=== PATIENT | female | born 1950 | race Two or more races ===

== ENCOUNTER 2020-01-04 11:53 | Emergency (ER) | payer OTHER ==
[~2020-01-04] VITALS: Ht 160 cm; Wt 63.5 kg
[2020-01-04] MEDS ORDERED: COZAAR50 MG PO (13:04)
[2020-01-04] MEDS ORDERED: CIDAFLEX TABLE1 EACH (13:05)
[2020-01-04] MEDS ORDERED: [UNRECOGNIZED DRUG - OTHER] (13:05)
[2020-01-04] MEDS ORDERED: MULTI VITAMIN1 EACH PO (13:05)
[2020-01-04] MEDS ORDERED: CITRACAL-VIT D1 EACH (13:06)
[2020-01-04] MEDS ORDERED: OSTERA TABLET1 EACH PO (13:06)
[2020-01-04] MEDS ORDERED: GLYCOTROL CAPS1 EACH PO (13:06)
[2020-01-04] MEDS ORDERED: MAGNESIUM400 M1 (13:07)
[2020-01-04] MEDS ORDERED: BIOTIN5000 MCG (13:07)
[2020-01-04] MEDS ORDERED: PROBIOTIC1 EAC2 PO (13:08)
[2020-01-04] MEDS ORDERED: NORVASC2.5 MG PO (13:08)
== END 2020-01-04 14:50 | disposition home or self-care (01) ==
LOC: ER 11:53
DX: S13.4XXA Sprain of ligaments of cervical spine, initial encounter (principal); S93.401A Sprain of unspecified ligament of right ankle, initial encounter; W18.39XA Other fall on same level, initial encounter; Y93.89 Activity, other specified; Y92.89 Other specified places as the place of occurrence of the external cause; Y99.8 Other external cause status